=== PATIENT | female | born 1960 | race Caucasian/White ===

== ENCOUNTER → 2016-09-23 | Outpatient (CLI) | payer BC ==
--- NOTE | 2016-09-23 09:47 | USB ---
Reason for exam: clinical finding. History: Patient is postmenopausal and had first child at age 32. Family history of breast cancer in maternal grandmother. Benign left mammotome panel of the left breast, January 12, 2013. Benign left US cyst aspiration of the left breast, December 11, 2010. Benign right US cyst aspiration of the right breast, June 07, 2009. Benign left US cyst aspiration of the left breast, May 15, 2007. Indicated problem(s): lump or thickening in the left breast. Physical Findings: Nurse Summary: tender at palpable area 12/1 o'clock x 2 lumps (nurse kp). US Breast LT Left breast ultrasound including all four quadrants, the retroareolar region and axilla demonstrates a 0.3 x 0.2 x 0.4cm oval, cystic lesion at 11 o'clock. These results were verbally communicated with the patient and result sheet given to the patient on 09/23/16. ASSESSMENT: Benign, BI-RAD 2 RECOMMENDATION: Return to routine screening mammogram schedule for both breasts. Back on schedule for February 2017. Manage patient on a clinical basis.
== END | disposition home or self-care (01) ==
LOC: RADUSWWP 08:19
PROVIDERS: ATTEND Obstetrics & Gynecology
DX: N63 Unspecified lump in breast (principal); N64.4 Mastodynia

== ENCOUNTER → 2016-11-20 | Outpatient (CLI) | payer BC ==
[2016-11-20 09:16] LABS: Basophils # (A) 0.1 k/uL (0-0.2); Basophils % (A) 1 %; CH 31.3; CHCM 34.7; Eosinophils # (A) 0.3 k/uL (0-0.7); Eosinophils % (A) 3 %; HCT 47.9 % (34.0-46.0); HDW 2.56; HGB 15.8 gm/dL (11.4-16.0); Luc # (Auto) 0.14; Luc % (Auto) 2; Lymphocytes # (A) 2.5 k/uL (1.0-4.8); Lymphocytes % (A) 32 %; MCHC 33.1 g/dL (31.0-37.0); MCV 90.7 fL (80.0-100.0); Mean Platelet Volume 8.5; Monocytes # (A) 0.4 k/uL (0-1.0); Monocytes % (A) 5 %; Neutrophils # (A) 4.6 k/uL (1.3-7.7); Neutrophils % (A) 57 %; RBC 5.28 m/uL (3.80-5.40); RDW 12.4 % (11.5-15.5); WBC (Perox) 7.99
[2016-11-20 09:33] LABS: ALT 75 U/L (9-52); AST 56 U/L (14-36); Alkaline Phosphatase 88 U/L (38-126); Anion Gap 15 mmol/L; Blood Urea Nitrogen 14 mg/dL (7-17); Carbon Dioxide 27 mmol/L (22-30); Chloride 102 mmol/L (98-107); Glucose 88 mg/dL (74-99); Non-African American GFR(MDRD) >60 (>60 ml/min/1.73 sqM); Potassium 4.7 mmol/L (3.5-5.1); Sodium 144 mmol/L (137-145); Total Bilirubin 0.9 mg/dL (0.2-1.3); Total Protein 8.2 g/dL (6.3-8.2)
== END | disposition home or self-care (01) ==
LOC: LABWHC1 07:13
PROVIDERS: ATTEND Internal Medicine Endocrinology, Diabetes & Metabolism
DX: E03.8 Other specified hypothyroidism (principal); E83.52 Hypercalcemia
CPT/HCPCS: 36415; 80053; 82306; 83970; 84443; 85025

== ENCOUNTER → 2017-02-26 | Outpatient (CLI) | payer BC ==
--- NOTE | 2017-02-27 08:37 | MM ---
Reason for exam: screening (asymptomatic). Last mammogram was performed 1 year ago. History: Patient is postmenopausal and had first child at age 32. Family history of breast cancer in maternal grandmother. Benign left mammotome panel of the left breast, January 12, 2013. Benign left US cyst aspiration of the left breast, December 11, 2010. Benign right US cyst aspiration of the right breast, June 07, 2009. Benign left US cyst aspiration of the left breast, May 15, 2007. Physical Findings: A clinical breast exam by your physician is recommended on an annual basis and results should be correlated with mammographic findings. MG 3D Screening Mammo W/Cad Bilateral CC and MLO view(s) were taken. Prior study comparison: September 23, 2016, left breast US breast LT. February 23, 2016, bilateral MG 3d screening mammo w/cad. February 17, 2015, bilateral MG screening mammo w CAD. The breast tissue is heterogeneously dense. This may lower the sensitivity of mammography. Previous mammotome biopsy in the left breast. There is chronic nodularity bilaterally. There is no discrete abnormality. ASSESSMENT: Benign, BI-RAD 2 RECOMMENDATION: Routine screening mammogram of both breasts in 1 year.
== END | disposition home or self-care (01) ==
LOC: RADMAMWWP 07:11
PROVIDERS: ATTEND Obstetrics & Gynecology
DX: Z12.31 Encounter for screening mammogram for malignant neoplasm of breast (principal)
CPT/HCPCS: 77063; G0202

== ENCOUNTER → 2017-03-28 | Outpatient (CLI) | payer BC ==
[2017-03-28 07:48] LABS: Basophils # (A) 0.1 k/uL (0-0.2); Basophils % (A) 1 %; CH 31.1; CHCM 35.2; Eosinophils # (A) 0.3 k/uL (0-0.7); Eosinophils % (A) 4 %; HCT 42.7 % (34.0-46.0); HDW 2.69; HGB 15.2 gm/dL (11.4-16.0); Luc # (Auto) 0.17; Luc % (Auto) 2; Lymphocytes # (A) 2.9 k/uL (1.0-4.8); Lymphocytes % (A) 34 %; MCH 31.7 pg (25.0-35.0); MCHC 35.7 g/dL (31.0-37.0); MCV 88.8 fL (80.0-100.0); Mean Platelet Volume 7.9; Monocytes # (A) 0.4 k/uL (0-1.0); Monocytes % (A) 5 %; Neutrophils # (A) 4.7 k/uL (1.3-7.7); Neutrophils % (A) 55 %; RBC 4.81 m/uL (3.80-5.40); RDW 12.6 % (11.5-15.5); WBC 8.6 k/uL (3.8-10.6); WBC (Perox) 7.98
[2017-03-28 08:04] LABS: ALT 68 U/L (9-52); AST 48 U/L (14-36); Alkaline Phosphatase 101 U/L (38-126); Anion Gap 10 mmol/L; Blood Urea Nitrogen 12 mg/dL (7-17); Calcium 9.7 mg/dL (8.4-10.2); Carbon Dioxide 29 mmol/L (22-30); Chloride 105 mmol/L (98-107); Cholesterol 187 mg/dL (<200); Glucose 94 mg/dL (74-99); HDL Cholesterol 41 mg/dL (40-60); Non-African American GFR(MDRD) >60 (>60 ml/min/1.73 sqM); Potassium 4.4 mmol/L (3.5-5.1); Sodium 144 mmol/L (137-145); Total Bilirubin 0.6 mg/dL (0.2-1.3); Total Protein 7.3 g/dL (6.3-8.2); Triglycerides 164 mg/dL (<150)
[2017-03-28 09:10] LABS: Hemoglobin A1C 5.5 % (4.2-6.1)
== END | disposition home or self-care (01) ==
LOC: LABWHC1 07:12
PROVIDERS: ATTEND Internal Medicine Geriatric Medicine
DX: E03.9 Hypothyroidism, unspecified (principal); E78.00 Pure hypercholesterolemia, unspecified; R73.9 Hyperglycemia, unspecified
CPT/HCPCS: 36415; 80053; 80061; 83036; 84439; 84443; 85025

== ENCOUNTER → 2017-04-22 | Outpatient (CLI) | payer BC ==
--- NOTE | 2017-04-22 08:11 | US ---
EXAMINATION TYPE: US abdomen complete DATE OF EXAM: 04/22/2017 COMPARISON: Complete abdominal ultrasound June 13, 2011. CLINICAL HISTORY: R94.5 ABN LIVER FUNCTION RESULTS. EXAM MEASUREMENTS: Liver Length: 14.8 cm Gallbladder Wall: Surgically absent cm CBD: 0.4 cm Spleen: 10.6 cm Right Kidney: 11.5 x 4.2 x 4.9 cm Left Kidney: 11.4 x 5.9 x 5.4 cm Pancreas: visualized portions wnl Liver: difficult to penetrate Gallbladder: Surgically absent CBD: wnl Spleen: wnl Right Kidney: No hydronephrosis or masses seen Left Kidney: No hydronephrosis or masses seen Upper IVC: wnl Abd Aorta: wnl The visualized liver remains heterogeneously hyperechoic. Evaluation for focal masses is suboptimal d ue to the heterogeneity. The intrahepatic portion of the IVC and proximal abdominal aorta are within normal limits. Gallbladder is surgically absent. Common bile duct is unremarkable. The visualized p ortions of the pancreas are homogenous. The spleen is unremarkable. Kidneys are symmetric and free of hydronephrosis. No renal lesions are seen. IMPRESSION: Heterogeneous hyperechoic appearance of liver is redemonstrated likely on basis of diffus e fatty infiltration, underlying hepatocellular disease is not excluded. Imaging guided random biopsy for tissue analysis can be performed if desired.
== END | disposition home or self-care (01) ==
LOC: RADUSWWP 07:35
PROVIDERS: ATTEND Internal Medicine Geriatric Medicine
DX: R93.2 Abnormal findings on diagnostic imaging of liver and biliary tract (principal)
CPT/HCPCS: 76700

== ENCOUNTER → 2017-06-23 | Outpatient (CLI) | payer BC ==
[2017-06-23 08:58] LABS: Basophils # (A) 0.1 k/uL (0-0.2); Basophils % (A) 1 %; CH 31.4; CHCM 33.7; Eosinophils # (A) 0.3 k/uL (0-0.7); Eosinophils % (A) 3 %; HDW 2.58; HGB 15.8 gm/dL (11.4-16.0); Luc # (Auto) 0.15; Luc % (Auto) 2; Lymphocytes # (A) 2.6 k/uL (1.0-4.8); Lymphocytes % (A) 32 %; MCH 30.8 pg (25.0-35.0); MCHC 32.9 g/dL (31.0-37.0); MCV 93.4 fL (80.0-100.0); Monocytes # (A) 0.4 k/uL (0-1.0); Monocytes % (A) 5 %; Neutrophils # (A) 4.7 k/uL (1.3-7.7); Neutrophils % (A) 58 %; RBC 5.14 m/uL (3.80-5.40); RDW 12.7 % (11.5-15.5); WBC 8.1 k/uL (3.8-10.6); WBC (Perox) 7.75
[2017-06-23 09:08] LABS: Bilirubin, Delta 0.3 mg/dL (0.0-0.2); Total Bilirubin 0.7 mg/dL (0.2-1.3); Total Protein 7.8 g/dL (6.3-8.2)
[2017-06-23 15:09] LABS: Iron Saturation 37.76 (12.00-45.00); Iron(FE) 108 ug/dL (50-170); Total Iron Binding Capacity 286 ug/dL (228-460)
[2017-06-23 15:54] LABS: ANA w/Reflex to Titer NEGATIVE (NEGATIVE)
== END | disposition home or self-care (01) ==
LOC: LABWHC1 07:19
PROVIDERS: ATTEND Physician Assistant
DX: R94.5 Abnormal results of liver function studies (principal)
CPT/HCPCS: 36415; 80074; 80076; 82103; 82390; 82728; 83516; 83540; 83550; 84165; 85025; 86038

== ENCOUNTER → 2017-08-12 | Outpatient (CLI) | payer BC | END | disposition home or self-care (01) | LOC: LABWHC1 07:15 | PROVIDERS: ATTEND Internal Medicine Geriatric Medicine | DX: E03.9 Hypothyroidism, unspecified (principal); R73.9 Hyperglycemia, unspecified; R94.5 Abnormal results of liver function studies | CPT/HCPCS: 36415; 82105; 83036; 84439; 84443 ==

== ENCOUNTER 2017-10-10 07:10 | Day surgery (SDC) | payer BC ==
[2017-10-08 14:54] VITALS: BMI 27.4
[~2017-10-10 07:10] MED LIST: LACTATED RINGERS 1,000 ML IV SCH
[2017-10-10 07:27] VITALS: RESP 16; TEMP 98.3
[2017-10-10] MEDS ORDERED: LIDOCAINE 1% 20 ML VIAL (10MG/ML) FOR IV START INTRADERMA ONE (07:32)
--- NOTE | 2017-10-10 08:05 | P.PCN ---
Date of Procedure: 10/10/17 Procedure(s) Performed: BRIEF HISTORY: Patient is a 57-year-old pleasant white female, scheduled for an elective colonoscopy as a part of evaluation of prior history of colon polyps. PROCEDURE PERFORMED: Colonoscopy with biopsy and. PREOPERATIVE DIAGNOSIS: History of colon polyps. IV sedation per Anesthesia. PROCEDURE: After informed consent was obtained, the patient, was brought into the endoscopy unit. IV sedation was administered by Anesthesia under continuous monitoring. Digital rectal examination revealed a posterior midline anal fissure.. Initially the Olympus CF-160 flexible video colonoscope was then inserted in the rectum, gradually advanced into the cecum without any difficulty. Careful examination was performed as the scope was gradually being withdrawn. Ileocecal valve and the appendiceal orifice were visualized and appeared normal. Prep was excellent. Mucosa of the cecum, ascending colon, transverse colon, descending colon, sigmoid colon, and rectum appeared normal. Retroflexion was performed in the rectum and no lesions were seen. The patient tolerated the procedure well. IMPRESSION: 5 mm rectal sigmoid polyp status post removal by biopsy Rest of the colon appeared normal. Superficial anal fissure. RECOMMENDATIONS: Findings of this examination were discussed with the patient as well as a family. She was advised to follow with the biopsy results. She can have a repeat colonoscopy in 5 years.
[2017-10-10 08:47] VITALS: BP 137/86; PULSE 72
--- NOTE | 2017-10-21 10:27 | CDI ---
Outpatient Documentation Clarification Form Date: 10/21/17 CDS/Purchase Order Checker Name: Phone: If you have question, contact Ella Santiago Manager Massage Department at M-F 8:30 am to 6pm. Patient Name: Alison Alexander Admit Date: 10/10/17 Discharge Date: 10/10/17 ATTENTION: The Clinical Documentation Specialists (CDI) and [facility] Coding Staff appreciate your assistance in clarifying documentation. Please respond to the clarification below the line at the bottom and electronically sign. The CDI & [facility] Coding staff will review the response and follow-up if needed. Please note: Queries are made part of the Legal Health Record. If you have any questions, please contact the author of this message via ITS or call the Manager Massage Department. Dr. Abigail Valdez, The procedure title and the impression both mention a biopsy. The detailed procedure description does not make any mention of a biopsy. Please provide an updated procedure description with details regarding the biopsy. __ MTDD
--- NOTE | 2017-10-27 14:54 | CDI ---
Outpatient Documentation Clarification Form Date: 10/27/17 CDS/Housekeeping Supervisor Name: Phone: If any questions, call Ella Santiago Manufacturing Specialist at [phone] Patient Name: Alison Blanco Admit Date: 10/10/17 Discharge Date: 10/10/17 ATTENTION: The [facility] Coding Staff appreciate your assistance in clarifying documentation. Please respond to the clarification below the line at the bottom and electronically sign. The [facility] Coding staff will review the response and follow-up if needed. Please note: Queries are made part of the Legal Health Record. If you have any questions, please contact the Manufacturing Specialist. Dear Dr. Valdez The procedure title and the impression both mention a biopsy. The detailed procedure description does not make any mention of a biopsy. Please provide an updated procedure description with details regarding the biopsy. Thank you for your kind consideration. MTDD
--- NOTE | 2017-10-29 11:06 | CDI ---
Outpatient Documentation Clarification Form Date: 10/29/17 CDS/Smocker Name: Phone: If any questions, call Ella Santiago Electron Gun Inspector at [phone] Patient Name: Alison Blanco Admit Date: 10/10/17 Discharge Date: 10/10/17 ATTENTION: The [facility] Coding Staff appreciate your assistance in clarifying documentation. Please respond to the clarification below the line at the bottom and electronically sign. The [facility] Coding staff will review the response and follow-up if needed. Please note: Queries are made part of the Legal Health Record. If you have any questions, please contact the Electron Gun Inspector. Dear Dr. Valdez The procedure title and the impression both mention a biopsy. The detailed procedure description does not make any mention of a biopsy. Please provide an updated procedure description with details regarding the biopsy. Thank you for your kind consideration. __addendum done 11/13/2017 ____ MTDD
== END 2017-10-10 09:00 | disposition home or self-care (01) ==
LOC: ORWHC2ENDO 07:10
PROVIDERS: ATTEND Internal Medicine Gastroenterology
DX: Z12.11 Encounter for screening for malignant neoplasm of colon (principal); K62.1 Rectal polyp; K63.5 Polyp of colon; K60.2 Anal fissure, unspecified; Z86.010 Personal history of colon polyps; E07.9 Disorder of thyroid, unspecified; R10.9 Unspecified abdominal pain; Z79.890 Hormone replacement therapy; Z88.1 Allergy status to other antibiotic agents
CPT/HCPCS: 45380; 88305

== ENCOUNTER → 2018-03-11 | Outpatient (CLI) | payer BC ==
--- NOTE | 2018-03-12 10:11 | MM ---
Reason for exam: screening (asymptomatic). Last mammogram was performed 1 year ago. History: Patient is postmenopausal and had first child at age 32. Family history of breast cancer in maternal grandmother. Benign left mammotome panel of the left breast, January 12, 2013. Benign left US cyst aspiration of the left breast, December 11, 2010. Benign right US cyst aspiration of the right breast, June 07, 2009. Benign left US cyst aspiration of the left breast, May 15, 2007. Physical Findings: A clinical breast exam by your physician is recommended on an annual basis and results should be correlated with mammographic findings. MG 3D Screening Mammo W/Cad Bilateral CC and MLO view(s) were taken. Prior study comparison: February 26, 2017, bilateral MG 3d screening mammo w/cad. February 23, 2016, bilateral MG 3d screening mammo w/cad. The breast tissue is heterogeneously dense. This may lower the sensitivity of mammography. Focal asymmetry upper right MLO view, 7.5cm from nipple. This finding is changed when compared with previous exams. ASSESSMENT: Incomplete: need additional imaging evaluation, BI-RAD 0 RECOMMENDATION: Special view mammogram of the right breast. If lesion persists on supplemental views, image directed ultrasound is recommended. [facility] will attempt to contact patient to return for supplemental views and ultrasound if indicated.
== END | disposition home or self-care (01) ==
LOC: RADMAMWWP 11:21
PROVIDERS: ATTEND Obstetrics & Gynecology
DX: Z12.31 Encounter for screening mammogram for malignant neoplasm of breast (principal)
CPT/HCPCS: 77063; 77067

== ENCOUNTER → 2018-03-13 | Outpatient (CLI) | payer BC ==
--- NOTE | 2018-03-13 08:32 | MM ---
Reason for exam: additional evaluation requested from abnormal screening. Last mammogram was performed less than 1 month ago. History: Patient is postmenopausal and had first child at age 32. Family history of breast cancer in maternal grandmother. Benign left mammotome panel of the left breast, January 12, 2013. Benign left US cyst aspiration of the left breast, December 11, 2010. Benign right US cyst aspiration of the right breast, June 07, 2009. Benign left US cyst aspiration of the left breast, May 15, 2007. Physical Findings: Nurse did not find any significant physical abnormalities on exam. MG 3D Work Up W/Cad RT Spot compression CC, spot compression MLO, and LM view(s) were taken of the right breast. Prior study comparison: March 11, 2018, bilateral MG 3d screening mammo w/cad. February 26, 2017, bilateral MG 3d screening mammo w/cad. The breast tissue is heterogeneously dense. This may lower the sensitivity of mammography. There is chronic nodularity in the right breast. The superior asymmetric density appears to disperse on additional views. No architectural distortion or suspicious mass seen. Precautionary 6 month follow up recommended. These results were verbally communicated with the patient and result sheet given to the patient on 03/13/18. ASSESSMENT: Probably benign, BI-RAD 3 RECOMMENDATION: Follow-up diagnostic mammogram of the right breast in 6 months.
== END | disposition home or self-care (01) ==
LOC: RADMAMWWP 07:29
PROVIDERS: ATTEND Obstetrics & Gynecology
DX: R92.8 Other abnormal and inconclusive findings on diagnostic imaging of breast (principal)
CPT/HCPCS: 77061; 77065

== ENCOUNTER → 2018-09-30 | Outpatient (CLI) | payer BC ==
--- NOTE | 2018-10-03 16:37 | MM ---
Reason for exam: follow-up at short interval from prior study. Last mammogram was performed 7 months ago. History: Patient is postmenopausal and had first child at age 32. Family history of breast cancer in maternal grandmother. Benign left mammotome panel of the left breast, January 12, 2013. Benign left US cyst aspiration of the left breast, December 11, 2010. Benign right US cyst aspiration of the right breast, June 07, 2009. Benign left US cyst aspiration of the left breast, May 15, 2007. Took hormonal contraceptives for 6 months. Physical Findings: Nurse Summary: a 1 x 0.5 cm palpable at 12 o'clock. MG 3D Diag Mammo W/Cad RT CC and MLO view(s) were taken of the right breast. Prior study comparison: March 13, 2018, right breast MG 3d work up w/cad RT. March 11, 2018, bilateral MG 3d screening mammo w/cad. The breast tissue is heterogeneously dense. This may lower the sensitivity of mammography. Chronic nodularity in the right breast. ASSESSMENT: Incomplete: need additional imaging evaluation, BI-RAD 0 RECOMMENDATION: Ultrasound. Palpable on the left.
--- NOTE | 2018-10-03 16:43 | USB ---
Reason for exam: clinical finding. History: Patient is postmenopausal and had first child at age 32. Family history of breast cancer in maternal grandmother. Benign left mammotome panel of the left breast, January 12, 2013. Benign left US cyst aspiration of the left breast, December 11, 2010. Benign right US cyst aspiration of the right breast, June 07, 2009. Benign left US cyst aspiration of the left breast, May 15, 2007. Took hormonal contraceptives for 6 months. Indicated problem(s): palpable abnormality in the left breast. US Breast Limited LT Left limited breast ultrasound including focal area of concern, retroareolar and axilla demonstrates a 0.5 x 1.0 x 0.4 cm oval mixed lesion at the BB at 11 o'clock that corralated with the palpable, left posterior nipple ductal ectasia, and in the axilla a node that is 1.6 x 1.2 x 0.9cm. These results were verbally communicated with the patient and result sheet given to the patient on 09/30/18. ASSESSMENT: Probably benign, BI-RAD 3 RECOMMENDATION: Ultrasound of the left breast in 6 months. Return to routine screening mammogram schedule for both breasts. Back on schedule
== END ==
LOC: RADMAMWWP 09:33
PROVIDERS: ATTEND Obstetrics & Gynecology
DX: R92.8 Other abnormal and inconclusive findings on diagnostic imaging of breast (principal)
CPT/HCPCS: 77061; 77065

== ENCOUNTER → 2019-03-24 | Outpatient (CLI) | payer BC ==
[2019-03-24 17:31] LABS: Basophils # (A) 0.1 k/uL (0-0.2); Basophils % (A) 1 %; Eosinophils # (A) 0.3 k/uL (0-0.7); Eosinophils % (A) 3 %; HCT 45.1 % (34.0-46.0); HGB 15.3 gm/dL (11.4-16.0); Lymphocytes # (A) 2.4 k/uL (1.0-4.8); Lymphocytes % (A) 34 %; MCH 30.4 pg (25.0-35.0); MCV 89.4 fL (80.0-100.0); Mean Platelet Volume 8.1; Monocytes # (A) 0.4 k/uL (0-1.0); Monocytes % (A) 5 %; Neutrophils % (A) 55 %; Platelet Count 210 k/uL (150-450); RBC 5.04 m/uL (3.80-5.40); RDW 12.5 % (11.5-15.5); WBC 7.2 k/uL (3.8-10.6)
[2019-03-25 06:05] LABS: African American GFR (CKD) 110.7 (60.0-200.0); Albumin 4.7 g/dL (3.80-4.90); Albumin/Globulin Ratio 2.24 (1.60-3.17); Anion Gap 11.6 mmol/L (4.00-12.00); BUN/Creat Ratio 17.14 Ratio (12.00-20.00); Carbon Dioxide 26.4 mmol/L (21.6-31.8); Globulin 2.1 g/dL (1.6-3.3); Total Bilirubin 0.5 mg/dL (0.2-1.2); Total Protein 6.8 g/dL (6.2-8.2)
== END | disposition home or self-care (01) ==
LOC: LABWHC1 16:34
PROVIDERS: ATTEND Internal Medicine Gastroenterology
DX: K76.0 Fatty (change of) liver, not elsewhere classified (principal)
CPT/HCPCS: 36415; 80053; 85025

== ENCOUNTER → 2019-03-31 | Outpatient (CLI) | payer BC ==
--- NOTE | 2019-03-31 11:23 | MM ---
Reason for exam: additional evaluation requested from prior study. Last mammogram was performed 6 months ago. History: Patient is postmenopausal and had first child at age 32. Family history of breast cancer in maternal grandmother. Benign left mammotome panel of the left breast, January 12, 2013. Benign left US cyst aspiration of the left breast, December 11, 2010. Benign right US cyst aspiration of the right breast, June 07, 2009. Benign left US cyst aspiration of the left breast, May 15, 2007. Took hormonal contraceptives for 6 months. Physical Findings: Nurse did not find any significant physical abnormalities on exam. MG 3D Diag Mammo W/Cad JUNE Bilateral CC and MLO view(s) were taken. LM, spot compression MLO, and spot compression CC view(s) were taken of the left breast. Prior study comparison: September 30, 2018, right breast MG 3d diag mammo w/cad RT. March 13, 2018, right breast MG 3d work up w/cad RT. The breast tissue is heterogeneously dense. This may lower the sensitivity of mammography. Previous mammotome biopsy in the left breast. There is no discrete abnormality on tomosynthesis similar to prior right MLO. On left MLO compression area dispersed. May have residual on left ML. This finding is changed when compared with previous exams. These results were verbally communicated with the patient and result sheet given to the patient on 03/31/19. ASSESSMENT: Incomplete: need additional imaging evaluation, BI-RAD 0 RECOMMENDATION: Ultrasound of the left breast.
--- NOTE | 2019-03-31 11:25 | USB ---
Reason for exam: additional evaluation requested from abnormal screening. History: Patient is postmenopausal and had first child at age 32. Family history of breast cancer in maternal grandmother. Benign left mammotome panel of the left breast, January 12, 2013. Benign left US cyst aspiration of the left breast, December 11, 2010. Benign right US cyst aspiration of the right breast, June 07, 2009. Benign left US cyst aspiration of the left breast, May 15, 2007. Took hormonal contraceptives for 6 months. US Breast LT Left complete breast ultrasound includes all four quadrants, the retroareolar region and axilla. Finding demonstrates a 5 x 4 x 5mm oval, lymph node at 3 o'clock, a 6 x 2 x 5mm oval, mixed lesion at 8 o'clock, a 7 x 3 x 5mm oval, mixed lesion at 9 o'clock, new, short term follow up recommended, a 3 x 2 x 2mm oval, cystic lesion at 11 o'clock and a 7mm oval, lymph node at the axilla tail. These results were verbally communicated with the patient and result sheet given to the patient on 03/31/19. ASSESSMENT: Probably benign, BI-RAD 3 RECOMMENDATION: Ultrasound of the left breast in 3 months.
== END | disposition home or self-care (01) ==
LOC: RADMAMWWP 08:50
PROVIDERS: ATTEND Surgery
DX: R92.8 Other abnormal and inconclusive findings on diagnostic imaging of breast (principal)
CPT/HCPCS: 77062; 77066

== ENCOUNTER → 2019-06-01 | Outpatient (CLI) | payer BC ==
--- NOTE | 2019-06-01 10:22 | USB ---
Reason for exam: follow-up at short interval from prior study. History: Patient is postmenopausal and had first child at age 32. Family history of breast cancer in maternal grandmother. Benign left mammotome panel of the left breast, January 12, 2013. Benign left US cyst aspiration of the left breast, December 11, 2010. Benign right US cyst aspiration of the right breast, June 07, 2009. Benign left US cyst aspiration of the left breast, May 15, 2007. Took hormonal contraceptives for 6 months. Physical Findings: Nurse Summary: all soft, nodular, movable, bilateral nodularity (nurse ts). US Breast LT Left complete breast ultrasound includes all four quadrants, the retroareolar region and axilla. Finding demonstrates a 0.6 x 0.5cm round node at 3 o'clock, a 0.6 x 0.3 x 0.3cm oval lesion too small to characterize at 8 o'clock, a 0.5 x 0.2 x 0.5cm mixed lesion at 9 o'clock, a 0.3 x 0.2 x 0.3cm lesion too small to characterize at 11 o'clock and axillary tail nodes. Stable. These results were verbally communicated with the patient and result sheet given to the patient on 06/01/19. ASSESSMENT: Benign, BI-RAD 2 RECOMMENDATION: Routine screening mammogram of both breasts in 10 months. Back on schedule for March 2020.
== END | disposition home or self-care (01) ==
LOC: RADUSWWP 08:51
PROVIDERS: ATTEND Surgery
DX: R92.8 Other abnormal and inconclusive findings on diagnostic imaging of breast (principal)

== ENCOUNTER → 2019-09-01 | Outpatient (CLI) | payer BC ==
--- NOTE | 2019-09-01 14:23 | XR ---
Lumbar spine HISTORY: Low back pain 3 views of the lumbar spine Lumbar vertebral bodies show preserved height, alignment, and bone mineralization. There is loss of d isc height at intervertebral levels especially L5-S1, L3-4, there is associated spondylosis. Sclerosi s present in the posterior elements of the lower lumbar spine noted. Surgical clips present right upp er quadrant. IMPRESSION: Degenerative disc disease and facet arthropathy.
--- NOTE | 2019-09-01 15:47 | US ---
EXAMINATION TYPE: US thyroid st tissue head/neck DATE OF EXAM: 09/01/2019 COMPARISON: US 2016 CLINICAL HISTORY: E07.9 DISORDER OF THYROID, UNSPECIFIED. follow up thyroid nodules, patient on thyro id meds GLAND SIZE: Right Lobe: 3.5 x 0.8 x 0.9 cm Overall Parenchyma: homogenous Left Lobe: 3.1 x 0.9 x 0.7 cm Overall Parenchyma: homogeneous Isthmus Thickness: 0.2 cm NODULES RIGHT: # of nodules measured on right: 0 LEFT: # of nodules measured on left: 1 1. 0.8 X 0.8 x 0.6 cm hyperechoic solid nodule at the upper pole with well-defined margins. This no dule is taller than wide and shows intranodular vascularity. Prior size: 0.8 x 0.5 x 0.6 cm ISTHMUS: # of nodules measured in the isthmus: 0 Bilateral neck scanned, no evidence of lymphadenopathy. Homogeneous small thyroid redemonstrated with stable hyperechoic subcentimeter left thyroid nodule. IMPRESSION: Overall stable findings, no greater than 1 cm nodule seen.
== END | disposition home or self-care (01) ==
LOC: RADUSWWP 13:45
PROVIDERS: ATTEND Internal Medicine Geriatric Medicine
DX: M51.36 Other intervertebral disc degeneration, lumbar region (principal); M46.96 Unspecified inflammatory spondylopathy, lumbar region; E04.1 Nontoxic single thyroid nodule
CPT/HCPCS: 72100; 76536

== ENCOUNTER → 2020-03-22 | Outpatient (CLI) | payer BC ==
--- NOTE | 2020-03-23 09:32 | MM ---
Reason for exam: additional evaluation requested from prior study. Last mammogram was performed 1 year ago. History: Patient is postmenopausal and had first child at age 32. Family history of breast cancer in maternal grandmother. Benign left mammotome panel of the left breast, January 12, 2013. Benign left US cyst aspiration of the left breast, December 11, 2010. Benign right US cyst aspiration of the right breast, June 07, 2009. Benign left US cyst aspiration of the left breast, May 15, 2007. Took hormonal contraceptives for 6 months. Physical Findings: Nurse did not find any significant physical abnormalities on exam. MG 3D Diag Mammo W/Cad JUNE Bilateral CC and MLO view(s) were taken. Prior study comparison: March 31, 2019, bilateral MG 3d diag mammo w/cad JUNE. September 30, 2018, right breast MG 3d diag mammo w/cad RT. March 11, 2018, bilateral MG 3d screening mammo w/cad. February 26, 2017, bilateral MG 3d screening mammo w/cad. February 23, 2016, bilateral MG 3d screening mammo w/cad. The breast tissue is heterogeneously dense. This may lower the sensitivity of mammography. No significant new findings when compared with previous films. These results were verbally communicated with the patient and result sheet given to the patient on 03/22/20. ASSESSMENT: Benign, BI-RAD 2 RECOMMENDATION: Routine screening mammogram of both breasts in 1 year.
--- NOTE | 2020-03-23 09:34 | USB ---
Reason for exam: additional evaluation requested from prior study. History: Patient is postmenopausal and had first child at age 32. Family history of breast cancer in maternal grandmother. Benign left mammotome panel of the left breast, January 12, 2013. Benign left US cyst aspiration of the left breast, December 11, 2010. Benign right US cyst aspiration of the right breast, June 07, 2009. Benign left US cyst aspiration of the left breast, May 15, 2007. Took hormonal contraceptives for 6 months. US Breast LT Left complete breast ultrasound includes all four quadrants, the retroareolar region and axilla. Finding demonstrates a 5 x 5 x 5mm oval, hypoechoic lymph node at 3 o'clock, a 3 x 2 x 2mm oval, cystic lesion at 4 o'clock and a 5 x 2 x 5mm mixed lesion at 8 o'clock. These results were verbally communicated with the patient and result sheet given to the patient on 03/22/20. ASSESSMENT: Benign, BI-RAD 2 RECOMMENDATION: Routine screening mammogram of both breasts in 1 year.
== END | disposition home or self-care (01) ==
LOC: RADMAMWWP 14:05
PROVIDERS: ATTEND Surgery
DX: N64.4 Mastodynia (principal)
CPT/HCPCS: 77062; 77066

== ENCOUNTER → 2020-06-22 | Outpatient (CLI) | payer BC ==
--- NOTE | 2020-06-22 16:41 | BD ---
EXAMINATION TYPE: Axial Bone Density DATE OF EXAM: 06/22/2020 COMPARISON: 05.04.2015 CLINICAL HISTORY: 59 YR OLD FEMALE....ICD-10 CODE: N95.1 POST MENOPAUSAL Height: 63 Weight: 156 FRAX RISK QUESTIONS: History of Fracture in Adulthood: YES RISK FACTORS HISTORY OF: History of Wrist Fracture: BILAT YOUNG ADULT Postmenopausal woman: YES, AT AGE 50 Lost more than 2 inches in height since high school: YES Hyperparathyroidism: NO Adrenal Insufficiency: NO MEDICATIONS: Thyroid Medications: YES, SYNTHROID FOR ABOUT 6 YRS Additional Medications: VIT D Additional History: NOTHING ADDITIONAL TO ADD HERE EXAM MEASUREMENTS: Bone mineral densitometry was performed using the [employer] System. Bone mineral density as measured about the Lumbar spine is: ----- L1-L4(G/cm2): 1.191 T Score Values are as follows: ----- L1: 0.2 ----- L2: -.2 ----- L3: 0.4 ----- L4: -0.1 ----- L1-L4: 0.1 Bone mineral density has: Decreased -5.4% since study of: 05.04.1015 Bone mineral density about the R hip (g/cm2): 1.032 Bone mineral density about the L hip (g/cm2): 1.013 T Score values are as follows: -----R Neck: -0.9 -----L Neck: -1.2 -----R Total: 0.2 -----L Total: 0.0 Bone mineral density has: Decreased -5.5% since study of: 05.04.2015 FRAX%s: THERE IS A 12.6% CHANCE FOR A MAJOR OSTEOPOROTIC FX AND A 0.9% FOR HIP.....PROBABILITY FOR FX IN 10 YRS TIME IMPRESSION: Osteopenia (T Score between -2.5 and -1) now present femoral neck level left hip. Bone density decrea se or diminished from prior. There is slightly increased risk of fracture and the patient may be considered for treatment. Re-Screen 2-5 years. NOTE: T-SCORE=SD OF THE YOUNG ADULT MEAN.
== END | disposition home or self-care (01) ==
LOC: RADBDWWP 13:05
PROVIDERS: ATTEND Obstetrics & Gynecology
DX: M85.88 Other specified disorders of bone density and structure, other site (principal)
CPT/HCPCS: 77080

== ENCOUNTER → 2021-03-26 | Outpatient (CLI) | payer BC ==
--- NOTE | 2021-03-27 13:21 | MM ---
Reason for exam: screening (asymptomatic). Last mammogram was performed 1 year ago. History: Patient is postmenopausal and had first child at age 32. Family history of breast cancer in maternal grandmother. Benign left mammotome panel of the left breast, January 12, 2013. Benign left US cyst aspiration of the left breast, December 11, 2010. Benign right US cyst aspiration of the right breast, June 07, 2009. Benign left US cyst aspiration of the left breast, May 15, 2007. Took hormonal contraceptives for 6 months. Physical Findings: A clinical breast exam by your physician is recommended on an annual basis and results should be correlated with mammographic findings. MG 3D Screening Mammo W/Cad Bilateral CC and MLO view(s) were taken. Prior study comparison: March 22, 2020, bilateral MG 3d diag mammo w/cad JUNE. March 31, 2019, bilateral MG 3d diag mammo w/cad JUNE. The breast tissue is heterogeneously dense. This may lower the sensitivity of mammography. Left biopsy clip. ASSESSMENT: Benign, BI-RAD 2 RECOMMENDATION: Routine screening mammogram of both breasts in 1 year.
== END | disposition home or self-care (01) ==
LOC: RADMAMWWP 09:10
PROVIDERS: ATTEND Surgery
DX: Z12.31 Encounter for screening mammogram for malignant neoplasm of breast (principal); Z78.0 Asymptomatic menopausal state; Z80.3 Family history of malignant neoplasm of breast
CPT/HCPCS: 77063; 77067

== ENCOUNTER → 2021-08-08 | Outpatient (CLI) | payer BC ==
--- NOTE | 2021-08-08 10:03 | CT ---
EXAMINATION TYPE: CT sinus wo con DATE OF EXAM: 08/08/2021 COMPARISON: None HISTORY: Chronic sinusitis CT DLP: [address] of the paranasal sinuses was performed in the axial and coronal planes. Bone and soft tissue settings are submitted. The paranasal sinuses demonstrate normal aeration and development. Mild mucosal thickening sphenoid sinus. Remaining paranasal sinuses are well-aerated. The osteal meatal units are patent bilaterally. The nasal septum is midline. No bony destructive changes are seen within the field of view. IMPRESSION: Mild mucosal thickening sphenoid sinus. Remaining paranasal sinuses are well-aerated.
== END ==
LOC: RADCTMAIN 09:31
PROVIDERS: ATTEND Otolaryngology
DX: J32.9 Chronic sinusitis, unspecified (principal)
CPT/HCPCS: 70486

== ENCOUNTER → 2021-11-30 | Outpatient (CLI) | payer BC ==
[2021-11-30 14:51] LABS: Basophils # (A) 0.05 X 10*3/uL (0.00-0.10); Basophils % (A) 0.7 %; Eosinophils # (A) 0.26 X 10*3/uL (0.04-0.35); Eosinophils % (A) 3.7 %; HCT 47.3 % (37.2-46.3); HGB 15.3 g/dL (12.0-15.0); Immature Grans, Automated 0.3 %; Lymphocytes # (A) 2.25 X 10*3/uL (0.90-5.00); Lymphocytes % (A) 32.1 %; MCHC 32.3 g/dL (32.0-37.0); MCV 92.7 fL (80.0-97.0); Monocytes # (A) 0.58 X 10*3/uL (0.20-1.00); Monocytes % (A) 8.3 %; NRBC Per 100 WBC 0 /100 WBCS (0.0-0.0); Neutrophils # (A) 3.86 X 10*3/uL (1.80-7.70); Neutrophils % (A) 54.9 %; Platelet Count 210 X 10*3/uL (140-440); RDW 12.3 % (11.5-14.5); WBC 7.02 X 10*3/uL (4.50-10.00)
[2021-11-30 15:32] LABS: African American GFR (CKD) 98.1 (60.0-200.0); Albumin 4.9 g/dL (3.8-4.9); Albumin/Globulin Ratio 1.96 (1.60-3.17); Anion Gap 13.8 mmol/L (10.00-18.00); BUN/Creat Ratio 17.11 Ratio (12.00-20.00); C Reactive Protein 0.3 mg/dL (0.00-0.80); Calcium 10.1 mg/dL (8.7-10.3); Carbon Dioxide 24.5 mmol/L (20.0-27.5); Globulin 2.5 g/dL (1.6-3.3); Non-African American GFR(CKD) 84.7 (60.0-200.0); Potassium 4.9 mmol/L (3.5-5.5); Total Bilirubin 0.5 mg/dL (0.30-1.20); Total Protein 7.4 g/dL (6.2-8.2)
[2021-11-30 15:39] LABS: Erythrocyte Sedimentation Rate 8 mm/Hr (0-30)
[2021-11-30 18:56] LABS: Gliadin AB IgA, Deaminated NEGATIVE (NEGATIVE); Gliadin AB IgA, Unit <0.2 U/mL; Gliadin AB IgG, Deaminated NEGATIVE (NEGATIVE); Gliadin AB IgG, Unit <0.4 U/mL; Tis Transglutaminase IgA Unit <0.5 AI; Tis Transglutaminase IgG Unit <0.8 U/mL; Tissue Transglutaminase IgA NEGATIVE (NEGATIVE); Tissue Transglutaminase IgG NEGATIVE (NEGATIVE)
== END | disposition home or self-care (01) ==
LOC: LABWHC1 07:57
PROVIDERS: ATTEND Nurse Practitioner Family
DX: K52.9 Noninfective gastroenteritis and colitis, unspecified (principal)
CPT/HCPCS: 36415; 80053; 83516; 85025; 85652; 86140

== ENCOUNTER → 2022-03-27 | Outpatient (CLI) | payer BC ==
--- NOTE | 2022-03-27 10:19 | MM ---
Reason for Exam: Follow-up at short interval from prior study. Last screening mammogram was performed 12 month(s) ago. Patient History: Menarche at age 13. First Full-Term at age 32. Late child-bearing (after 30). Hysterectomy at age 43. Postmenopausal. Hormonal Contraceptives for 6 months. 01/12/2013, Benign Core Biopsy on the left side. 12/11/2010, Benign Cyst Aspiration on the left side. 06/07/2009, Benign Cyst Aspiration on the right side. 05/15/2007, Benign Cyst Aspiration on the left side. Maternal grandmother had breast cancer at or over age 50. Risk Values: Syeda 5 year model risk: 2.4%. NCI Lifetime model risk: 11.4%. Prior Study Comparison: 03/13/2018 Right Diagnostic Mammogram, [facility]. 09/30/2018 Right Diagnostic Mammogram, [facility]. 03/31/2019 Bilateral Diagnostic Mammogram, [facility]. 03/22/2020 Bilateral Diagnostic Mammogram, [facility]. 03/26/2021 Bilateral Screening Mammogram, [facility]. 09/18/2021 Left Diagnostic Mammogram, [facility]. Tissue Density: The breast tissue is heterogeneously dense. This may lower the sensitivity of mammography. Findings: Analyzed By CAD. Benign biopsy clip left breast redemonstrated. There are some stable small well-defined masses bilaterally but there are new small circumscribed masses present in the left breast from prior mammograms and oval 9 mm focal asymmetry in the upper right breast middle depth from prior mammogram not clearly seen on CC view. Further workup advised. Overall Assessment: Incomplete: need additional imaging evaluation, BI-RAD 0 Management: Diagnostic Breast Ultrasound of both breasts. Bilateral breast ultrasound. Results were given to the patient verbally at the time of exam. Electronically signed and approved by: Filemon Masters M.D.
--- NOTE | 2022-03-27 11:13 | USB ---
Reason for Exam: Additional evaluation requested from abnormal screening. Patient History: Menarche at age 13. First Full-Term at age 32. Late child-bearing (after 30). Hysterectomy at age 43. Postmenopausal. Hormonal Contraceptives for 6 months. 01/12/2013, Benign Core Biopsy on the left side. 12/11/2010, Benign Cyst Aspiration on the left side. 06/07/2009, Benign Cyst Aspiration on the right side. 05/15/2007, Benign Cyst Aspiration on the left side. Maternal grandmother had breast cancer at or over age 50. Risk Values: Syeda 5 year model risk: 2.4%. NCI Lifetime model risk: 11.4%. Prior Study Comparison: 03/22/2020 Bilateral Diagnostic Mammogram, [facility]. 03/26/2021 Bilateral Screening Mammogram, [facility]. 09/18/2021 Left Diagnostic Ultrasound, [facility]. 09/18/2021 Left Diagnostic Mammogram, [facility]. Findings: The whole breast of the left breast, the upper section of the breast of the right breast, the axilla of both breasts and the retroareolar of both breasts were scanned. Right breast ultrasound 10:00 position 7 cm distance from nipple shows a 6 x 4 x 4 mm oval anechoic lesion with increased through transmission favoring benign thin-walled cyst and similar 5 x 3 x 5 mm lesion left o'clock position. There is 5 x 2 x 6 mm thin-walled oval cyst at 2:00 position 2 cm distance from nipple. Whole left breast ultrasound including evaluation of subareolar and axillary regions shows benign lymph node at 3:00 position. There are few simple appearing thin-walled cyst. There is 6 x 7 x 3 mm oval anechoic lesion with lobulations favoring benign cyst. Benign left axillary lymph node. Overall Assessment: Benign, BI-RAD 2 Management: Diagnostic Mammogram of both breasts in 1 year. No ultrasound evidence for malignancy. Electronically signed and approved by: Filemon Masters M.D.
== END | disposition home or self-care (01) ==
LOC: RADMAMWWP 09:34
PROVIDERS: ATTEND Internal Medicine Geriatric Medicine
DX: R92.8 Other abnormal and inconclusive findings on diagnostic imaging of breast (principal); Z78.0 Asymptomatic menopausal state; Z80.3 Family history of malignant neoplasm of breast
CPT/HCPCS: 77062; 77066

== ENCOUNTER → 2022-04-03 | Outpatient (CLI) | payer BC ==
--- NOTE | 2022-04-03 11:25 | XR ---
EXAM TYPE: LUMBAR SPINE X RAY SERIES COMPARISON: NONE HISTORY: Back pain TECHNIQUE: 3 views are submitted. FINDINGS: Alignment is anatomic. The pedicles are intact. The transverse processes are intact. There is no s pondylolysis or spondylolisthesis. Surgical clips in the gallbladder fossa. There is hypertrophic an d degenerative change with facet arthropathy. Degenerative disc disease L3-L4 and L5-S1. Diffuse oste openia. IMPRESSION: 1. Multilevel degenerative disc disease most marked at levels L5-S1 and L3-L4..
--- NOTE | 2022-04-03 11:26 | XR ---
EXAMINATION TYPE: XR thoracic spine complete DATE OF EXAM: 04/03/2022 COMPARISON: NONE HISTORY: Back pain TECHNIQUE: 3 views submitted FINDINGS: Alignment is anatomic. There is no compression deformities. Vertebral body height and disc interspa ivette are maintained. Diffuse osteopenia. Hypertrophic changes in the spine with a mild degenerative d isc disease involving the mid and lower thoracic spine. IMPRESSION: 1. Diffuse osteopenia with mild degenerative disc disease and hypertrophic spurring mid to lower thor acic spine..
== END | disposition home or self-care (01) ==
LOC: RADXRMAIN 10:46
PROVIDERS: ATTEND Internal Medicine Geriatric Medicine
DX: M51.26 Other intervertebral disc displacement, lumbar region (principal); M51.34 Other intervertebral disc degeneration, thoracic region
CPT/HCPCS: 72072; 72100

== ENCOUNTER → 2022-06-13 | Outpatient (CLI) | payer BC ==
[2022-06-13 14:27] LABS: African American GFR (CKD) 92.2 (60.0-200.0); Albumin 4.8 g/dL (3.8-4.9); Albumin/Globulin Ratio 1.55 (1.60-3.17); Anion Gap 11.7 mmol/L (10.00-18.00); Calcium 9.9 mg/dL (8.7-10.3); Carbon Dioxide 27.3 mmol/L (20.0-27.5); Globulin 3.1 g/dL (1.6-3.3); Non-African American GFR(CKD) 79.6 (60.0-200.0); Potassium 4.4 mmol/L (3.5-5.5); Total Bilirubin 0.6 mg/dL (0.30-1.20); Total Protein 7.9 g/dL (6.2-8.2)
[2022-06-13 14:39] LABS: Basophils # (A) 0.05 X 10*3/uL (0.00-0.10); Basophils % (A) 0.7 %; Eosinophils # (A) 0.31 X 10*3/uL (0.04-0.35); Eosinophils % (A) 4.3 %; HGB 15.2 g/dL (12.0-15.0); Immature Grans, Automated 0.1 %; Lymphocytes # (A) 2.39 X 10*3/uL (0.90-5.00); Lymphocytes % (A) 33.1 %; MCH 31.1 pg (27.0-32.0); MCHC 33.8 g/dL (32.0-37.0); Mean Platelet Volume 11.7 fL (9.5-12.2); Monocytes # (A) 0.54 X 10*3/uL (0.20-1.00); Monocytes % (A) 7.5 %; NRBC Per 100 WBC 0 /100 WBCS (0.0-0.0); Neutrophils # (A) 3.93 X 10*3/uL (1.80-7.70); Neutrophils % (A) 54.3 %; Platelet Count 206 X 10*3/uL (140-440); RBC 4.89 X 10*6/uL (4.10-5.20); RDW 12.4 % (11.5-14.5); WBC 7.23 X 10*3/uL (4.50-10.00)
== END | disposition home or self-care (01) ==
LOC: LABWHC1 09:54
PROVIDERS: ATTEND Internal Medicine Gastroenterology
DX: R74.01 Elevation of levels of liver transaminase levels (principal)
CPT/HCPCS: 36415; 80053; 85025

== ENCOUNTER → 2022-09-24 | Outpatient (CLI) | payer BC ==
--- NOTE | 2022-09-24 11:36 | XR ---
EXAMINATION TYPE: XR clavicle LT DATE OF EXAM: 09/24/2022 COMPARISON: NONE HISTORY: Pain from lifting TECHNIQUE: Two images submitted. FINDINGS: AC joint is maintained. Osseous structures intact. Visualized lung apices are clear. No acu te fracture or dislocation. IMPRESSION: 1. No acute fracture or dislocation.
== END | disposition home or self-care (01) ==
LOC: RADXRMAIN 10:01
PROVIDERS: ATTEND Internal Medicine Geriatric Medicine
DX: S42.002S Fracture of unspecified part of left clavicle, sequela (principal)

== ENCOUNTER 2022-10-09 09:50 | Day surgery (SDC) | payer BC ==
[2022-10-07 12:16] VITALS: BMI 27.8
[2022-10-09] MEDS ORDERED: LACTATED RINGERS 1,000 ML IV SCH (10:23)
[2022-10-09] MEDS ORDERED: LIDOCAINE 1% (10MG/ML) FOR IV START INTRADERMA PRN (10:23)
[2022-10-09] MEDS ORDERED: ONDANSETRON 4 MG/2 ML VIAL IVP PRN (10:23)
[2022-10-09 10:33] VITALS: TEMP 98
[2022-10-09] MEDS ORDERED: PROPOFOL 10 MG/ML 20 ML VIAL IV ONE (12:09)
[2022-10-09] MEDS ORDERED: LIDOCAINE 2% INJ 20 MG/ML (2 ML VIAL) ONE (12:09)
--- NOTE | 2022-10-09 12:21 | P.PCN ---
Date of Procedure: 10/09/22 Procedure(s) Performed: BRIEF HISTORY: Patient is a 62-year-old pleasant white female scheduled for an elective colonoscopy as a part of evaluation of prior history of colon polyps. She is been having altered bowel movements with intermittent rectal bleeding for the last few weeks. PROCEDURE PERFORMED: Colonoscopy. PREOPERATIVE DIAGNOSIS: History of colon polyps/intermittent rectal bleeding and change in bowel habits. IV sedation per Anesthesia. PROCEDURE: After informed consent was obtained, the patient, was brought into the endoscopy unit. IV sedation was administered by Anesthesia under continuous monitoring. Digital rectal examination revealed superficial midline posterior anal fissure.. Initially the Olympus CF-160 flexible video colonoscope was then inserted in the rectum, gradually advanced into the cecum without any difficulty. Careful examination was performed as the scope was gradually being withdrawn. Ileocecal valve and the appendiceal orifice were visualized and appeared normal. Prep was fair.. Mucosa of the cecum, ascending colon, transverse colon, descending colon, sigmoid colon, and rectum appeared normal. Retroflexion was performed in the rectum and no lesions were seen. The patient tolerated the procedure well. IMPRESSION: Superficial midline anal fissure Normal-appearing colon from rectum to cecum no evidence of colorectal neoplasia.. RECOMMENDATIONS: Findings of this examination were discussed with the patient as well as a family. She was advised to be on a high-fiber diet and take fiber supplements a regular basis and avoid straining and constipation. She can have a repeat colonoscopy in 10 years..
[2022-10-09] MEDS ORDERED: LACTATED RINGERS 1,000 ML IV ONE (12:45)
[2022-10-09 12:46] VITALS: RESP 16
[2022-10-09 12:52] VITALS: BP 135/76; PULSE 71
== END 2022-10-09 12:59 | disposition home or self-care (01) ==
LOC: ORWHC2ENDO 09:50
PROVIDERS: ATTEND Internal Medicine Gastroenterology
DX: K60.2 Anal fissure, unspecified (principal); I10 Essential (primary) hypertension; G47.33 Obstructive sleep apnea (adult) (pediatric); E07.9 Disorder of thyroid, unspecified; M19.90 Unspecified osteoarthritis, unspecified site; K21.9 Gastro-esophageal reflux disease without esophagitis; H91.90 Unspecified hearing loss, unspecified ear; R74.8 Abnormal levels of other serum enzymes; K91.0 Vomiting following gastrointestinal surgery; Z99.89 Dependence on other enabling machines and devices; Z79.890 Hormone replacement therapy; Z79.899 Other long term (current) drug therapy; T75.3XXD Motion sickness, subsequent encounter; Z86.010 Personal history of colon polyps
CPT/HCPCS: 45378; J2704; J2001

== ENCOUNTER → 2022-12-30 | Outpatient (CLI) | payer BC ==
[2022-12-30 16:18] LABS: Basophils # (A) 0.05 X 10*3/uL (0.00-0.10); Basophils % (A) 0.8 %; Eosinophils # (A) 0.25 X 10*3/uL (0.04-0.35); Eosinophils % (A) 3.9 %; HCT 45.8 % (37.2-46.3); HGB 14.9 g/dL (12.0-15.0); Immature Grans, Automated 0.2 %; Lymphocytes # (A) 2.05 X 10*3/uL (0.90-5.00); Lymphocytes % (A) 31.7 %; MCH 30.3 pg (27.0-32.0); MCHC 32.5 g/dL (32.0-37.0); MCV 93.3 fL (80.0-97.0); Mean Platelet Volume 12.5 fL (9.5-12.2); Monocytes # (A) 0.51 X 10*3/uL (0.20-1.00); Monocytes % (A) 7.9 %; NRBC Per 100 WBC 0 /100 WBCS (0.0-0.0); Neutrophils # (A) 3.59 X 10*3/uL (1.80-7.70); Neutrophils % (A) 55.5 %; Platelet Count 181 X 10*3/uL (140-440); RBC 4.91 X 10*6/uL (4.10-5.20); RDW 12.4 % (11.5-14.5); WBC 6.46 X 10*3/uL (4.50-10.00)
[2022-12-30 16:42] LABS: ALT 30 U/L (8-44); AST 26 U/L (13-35); African American GFR (CKD) 97.1 (60.0-200.0); Albumin 4.6 g/dL (3.8-4.9); Albumin/Globulin Ratio 1.88 (1.60-3.17); Alkaline Phosphatase 107 U/L (41-126); Blood Urea Nitrogen 12.5 mg/dL (9.0-27.0); Calcium 9.9 mg/dL (8.7-10.3); Carbon Dioxide 27.8 mmol/L (20.0-27.5); Chloride 105 mmol/L (96-109); Chol/HDL Ratio 4.72 Ratio; Globulin 2.4 g/dL (1.6-3.3); Glucose 91 mg/dL (70-110); LDL Cholesterol,Calculated 118.9 mg/dL (0.0-131.0); Non-African American GFR(CKD) 83.8 (60.0-200.0); Potassium 4.2 mmol/L (3.5-5.5); Sodium 144 mmol/L (135-145)
== END | disposition home or self-care (01) ==
LOC: LABWHC1 07:45
PROVIDERS: ATTEND Nurse Practitioner Family
DX: E03.9 Hypothyroidism, unspecified (principal); E78.2 Mixed hyperlipidemia; E55.9 Vitamin D deficiency, unspecified; R73.9 Hyperglycemia, unspecified; K76.0 Fatty (change of) liver, not elsewhere classified
CPT/HCPCS: 36415; 80053; 80061; 82306; 83036; 84439; 84443; 85025

== ENCOUNTER → 2023-06-23 | Outpatient (CLI) | payer BC ==
[2023-06-23 11:16] LABS: ALT 31 U/L (8-44); AST 23 U/L (13-35); Albumin 4.8 d/dL (3.8-4.9); Albumin/Globulin Ratio 1.85 Ratio (1.60-3.17); Alkaline Phosphatase 109 U/L (41-126); BUN/Creat Ratio 21.62 Ratio (12.00-20.00); Blood Urea Nitrogen 17.3 mg/dL (9.0-27.0); Calcium 10.1 mg/dL (8.7-10.3); Carbon Dioxide 26.2 mmol/L (21.6-31.8); Chloride 104 mmol/L (96-109); Chol/HDL Ratio 4.67 Ratio; Globulin 2.6 d/dL (1.6-3.3); Glucose 87 mg/dL (70-110); LDL Cholesterol,Calculated 124.3 mg/dL (0.0-131.0); Potassium 4.4 mmol/L (3.5-5.5); Sodium 142 mmol/L (135-145); T4, Free (Free Thyroxine) 1.37 ng/dL (0.80-1.80); Total Bilirubin 0.6 mg/dL (0.3-1.2); Total Protein 7.4 d/dL (6.2-8.2)
[2023-06-23 11:25] LABS: Basophils # (A) 0.04 X 10*3/uL (0.00-0.10); Basophils % (A) 0.6 %; Eosinophils # (A) 0.25 X 10*3/uL (0.04-0.35); Eosinophils % (A) 3.8 %; HCT 44.7 % (37.2-46.3); HGB 15.1 d/dL (12.0-15.0); Lymphocytes % (A) 33.4 %; MCH 30.7 pg (27.0-32.0); MCHC 33.8 d/dL (32.0-37.0); MCV 90.9 FL (80.0-97.0); Mean Platelet Volume 11.6 FL (9.5-12.2); Monocytes # (A) 0.44 X 10*3/uL (0.20-1.00); Monocytes % (A) 6.7 %; NRBC Per 100 WBC 0 X 10*3/uL (0.00-0.01); Neutrophils # (A) 3.64 X 10*3/uL (1.80-7.70); Neutrophils % (A) 55.3 %; Platelet Count 195 X 10*3/uL (140-440); RBC 4.92 X 10*6/uL (4.10-5.20); WBC 6.58 X 10*3/uL (4.50-10.00)
== END | disposition home or self-care (01) ==
LOC: LABWHC1 07:21
PROVIDERS: ATTEND Internal Medicine Geriatric Medicine
DX: Z00.00 Encounter for general adult medical examination without abnormal findings (principal); E78.5 Hyperlipidemia, unspecified; E03.9 Hypothyroidism, unspecified; R73.9 Hyperglycemia, unspecified
CPT/HCPCS: 36415; 80053; 80061; 83036; 84439; 84443; 85025

== ENCOUNTER → 2023-07-15 | Outpatient (CLI) | payer BC ==
--- NOTE | 2023-07-15 16:00 | BD ---
EXAMINATION TYPE: Axial Bone Density DATE OF EXAM: 07/15/2023 CLINICAL HISTORY: 62 years old Female. ICD-10 CODE: M85.88 DISORDER OF BONE DENSITY Height: 64 Weight: 145.7 FRAX RISK QUESTIONS: Alcohol (3 or more units per day): no Family History (Parent hip fracture): no Glucocorticoids (More than 3mos): no (Ex: prednisone, prednisolone, methylprednisolone, dexamethasone, and hydrocortisone). History of Fracture in Adulthood: yes Secondary Osteoporosis: 1. Type 1 Diabetes: no 2. Hyperthyroidism: no 3. Menopause before 45: no 4. Malnutrition: no 5. Chronic liver disease: no Rheumatoid Arthritis: no Current Tobacco Use: no RISK FACTORS HISTORY OF: Surgery to Spine/Hip(right/left)/Wrist (right/left): no Family History of Osteoporosis: no Active: yes Diet low in dairy products/other sources of calcium: yes Postmenopausal woman: yes Lost more than 2 inches in height since high school: no MEDICATIONS: Thyroid Medications: synthroid How Lon years Additional History: EXAM MEASUREMENTS: Bone mineral densitometry was performed using the YODIL System. Bone mineral density as measured about the Lumbar spine is: ----- L1-L4(G/cm2): 1.111 T Score Values are as follows: ----- L1: -0.7 ----- L2: -0.6 ----- L3: -0.2 ----- L4: -1.0 ----- L1-L4: -0.6 Z Score Values are as follows: ----- L1: 0.7 ----- L2: .8 ----- L3: 1.2 ----- L4: 0.4 ----- L1-L4: 0.8 Bone mineral density has: decreased -6.7 % since study of: 06.22.2020 Bone mineral density about the R hip (g/cm2): 1.033 Bone mineral density about the L hip (g/cm2): 1.004 T Score values are as follows: -----R Neck: -0.8 -----L Neck: -1.0 -----R Total: 0.2 -----L Total: 0.0 Z Score values are as follows: -----R Neck: 0.6 -----L Neck: 0.4 -----R Total: 1.2 -----L Total: 1.0 Bone mineral density has: decreased -0.3 % since study of: 06.22.2020 FRAX%s: The graph provided illustrates a 13.0% chance for a major osteoporotic fx and a 0.8% chance f or the hips probability for fx in 10 years time. IMPRESSION: Normal (Values between +1 and -1 indicate normal bone mass). Consider repeating this study in 5 year s or sooner if there is some new clinical indication. NOTE: T-SCORE=SD OF THE YOUNG ADULT MEAN.
== END | disposition home or self-care (01) ==
LOC: RADBDWWP 14:15
PROVIDERS: ATTEND Obstetrics & Gynecology
DX: M85.88 Other specified disorders of bone density and structure, other site (principal); Z78.0 Asymptomatic menopausal state
CPT/HCPCS: 77080